=== PATIENT | male | born 2000 | race Caucasian/White ===

== ENCOUNTER 2024-01-09 22:22 | Emergency (ER) | payer OTHER, SELFPAY ==
--- NOTE | ~2024-01-09 | XR_ITS ---
XR chest 1V portable Ordering provider: Sudhir Corbin History: 23 years Male with . SOB . Comparison: None. FINDINGS: MEDIASTINUM: The cardiac silhouette is not enlarged. LUNGS: No infiltrates, effusions or pneumothorax. OTHER: Degenerative changes of the spine. No free air under the diaphragm. IMPRESSION: No acute cardiopulmonary pathology. Reviewed, dictated and finalized at location A.
[2024-01-09 22:31] VITALS: BP 134/82; PULSE 67; RESP 16; TEMP 37.1; O2SAT 99
--- NOTE | 2024-01-09 22:44 | ECG_ITS ---
[facility] [address] Test Date: 2024-01-09 Pat Name: Davion Valente Department: Room: Gender: M [employer]: : 2000 Requested By: Sudhir Lindsay Order Number: [id number] Pia MD: Deng Ferraro M.D. Measurements Intervals [place] Rate: 54 P: 56 DC: 133 QRS: 67 QRSD: 102 T: 46 QT: 389 QTc: 369 Interpretive Statements SINUS BRADYCARDIA WITH SINUS ARRHYTHMIA OTHERWISE NORMAL ECG No previous ECG available for comparison Electronically Signed On 01-10-2024 09:08:34 CDT by Deng Ferraro M.D.
[2024-01-09 23:05] VITALS: BP 112/70; PULSE 63; RESP 16; O2SAT 98
[2024-01-09 23:34] LABS: Influenza A QL RT-PCR Negative (Negative); Influenza B QL RT-PCR Negative (Negative); RSV RNA, RT-PCR Negative (Negative); SARS-CoV-2 RNA PCR Negative (Negative)
--- NOTE | 2024-01-10 00:11 | ED.GENADULT ---
HPI - General Adult General Chief complaint: Shortness of Breath/Dyspnea Stated complaint: sob Time Seen by Provider: 01/09/24 23:54 Source: patient Mode of arrival: ambulatory Limitations: no limitations History of Present Illness HPI narrative: This is a 23-year-old male who presents to the ED for chief complaint of chest tightness and shortness of breath onset this morning. Patient reports he woke up and started to have a cough. States that he went to work and started having increasing chest tightness and cough. States that it caused him to feel short of breath. Does admit to smoking cigarettes and vaping regularly. States the chest pain seems to be onset with deeper breathing but comes and goes at random as well. Denies any recent illness. Denies cardiac history. Denies history of blood clots, leg swelling. Denies fevers, chills, nausea, vomiting or productive cough. Related Data Allergies Allergy/AdvReac Type Severity Reaction Status Date / Time No Known Allergies Allergy Verified 01/09/24 22:33 Review of Systems Review of Systems: All systems as dictated in HPI Exam Narrative: GENERAL: Well-appearing, well-nourished, and in no acute distress. HEAD: Normocephalic, atraumatic. EYES: PERRLA and EOMI. ENT: Nares clear, no rhinorrhea or epistaxis. Mucous membranes moist. Oropharynx without tonsillar hypertrophy exudate or other lesions. NECK: Supple. No adenopathy or masses. CHEST: No respiratory distress. Mild bilateral expiratory wheezes. 98% room air. HEART: Regular rate and rhythm. No murmur heard. Normal peripheral pulses. ABDOMEN: Soft, nontender, nondistended, normal active bowel sounds. MSK: Normal range of motion. No edema. SKIN: Warm, dry, no rash. NEURO: Alert and oriented x3. No focal deficits. PSYCH: Normal mood and affect. Course Vital Signs Vital signs: Vital Signs Temperature 98.7 F 01/09/24 22:31 Pulse Rate 67 01/09/24 22:31 Respiratory Rate 16 01/09/24 22:31 Blood Pressure 134/82 01/09/24 22:31 Pulse Oximetry 99 01/09/24 22:31 Oxygen Delivery Room Air 01/09/24 22:31 Temperature 98.7 F 01/09/24 22:31 Pulse Rate 58 L 01/10/24 01:32 Respiratory Rate 16 01/10/24 01:32 Blood Pressure 104/76 01/10/24 01:32 Pulse Oximetry 99 01/10/24 01:32 Oxygen Delivery Room Air 01/10/24 00:38 Medical Decision Making MDM Narrative Medical decision making narrative: this is a 23-year-old male who presents to the ED for chief complaint of chest tightness, shortness of breath cough onset today. Vitals are normal. Exam shows mild wheezes bilaterally consistent with smoking history. likely has bronchitis as well. Chest x-ray shows no acute findings. ECG shows sinus rhythm with no acute ischemic findings. Heart score for chest pain is 0. Perc rule is negative VTE. he was given Solu-Medrol and breathing treatment here in the ED with moderate relief. Patient will be given Rx Medrol Dosepak and albuterol. Pt will be discharged in stable condition. Return precautions given and supportive measures discussed. Pt is understanding and agreeable with plan for discharge and follow-up with PCP. PERC Rule for Pulmonary Embolism from [email or web address] on 01/09/2024 All calculations should be rechecked by clinician prior to use RESULT SUMMARY: 0 criteria No need for further workup, as <2% chance of PE. If no criteria are positive and clinician?s pre-test probability is <15%, PERC Rule criteria are satisfied. INPUTS: Age >=0 ?> 0 = No HR >=00 ?> 0 = No O? sat on room air <95% ?> 0 = No Unilateral leg swelling ?> 0 = No Hemoptysis ?> 0 = No Recent surgery or trauma ?> 0 = No Prior PE or DVT ?> 0 = No Hormone use ?> 0 = No Vital Signs Vital Signs: Vital Signs Temperature 98.7 F 01/09/24 22:31 Pulse Rate 67 01/09/24 22:31 Respiratory Rate 16 01/09/24 22:31 Blood Pressure 134/82 01/09/24 22:31 Pulse Oximetry 99 01/08
[2024-01-10] MEDS: methylPREDNISolone SOD SUCC 40 MG VIAL IV PUSH (00:21)
[2024-01-10 00:26] VITALS: PULSE 52; RESP 12
[2024-01-10] MEDS: IPRATROPIUM 0.5 MG/ALBUTEROL SULFATE 2.5 MG AMPUL.NEB 3 ML INHALATION (00:26)
[2024-01-10 00:34] VITALS: PULSE 68; RESP 16
[2024-01-10 00:38] VITALS: O2SAT 100
[2024-01-10 00:52] LABS: Alanine Aminotransferase 11 U/L (6-50); Albumin Level 4.7 g/dL (3.5-5.1); Alkaline Phosphatase 60 U/L (38-126); Anion Gap 7 mmol/L (4-12); Aspartate Amino Transferase 22 U/L (17-59); Bilirubin,Total 0.6 mg/dL (0.2-1.3); Blood Urea Nitrogen 18 mg/dL (9-20); Calcium 9.2 mg/dL (8.4-10.2); Carbon Dioxide 24 mmol/L (22-30); Chloride 105 mmol/L (98-107); Estimated CRCL calculation 99 ml/min; Estimated Glomerular Filt Rate > 60; Glucose 92 mg/dL (65-110); Potassium 3.8 mmol/L (3.4-5.0); Sodium 136 mmol/L (137-145)
[2024-01-10 00:57] LABS: Basophils Absolute Auto 0.1 K/mm3 (0.0-0.1); Basophils Percent Auto 0.7 % (0.2-1.2); Eosinophils Absolute Auto 0.1 K/mm3 (0-0.3); Hematocrit 43.3 % (42.0-52.0); Hemoglobin 14.7 g/dL (14.0-18.0); Immature Granulocyte Absolute 0.02 K/mm3 (0.00-0.031); Immature Granulocyte Percent A 0.3 % (0-0.5); Lymphocytes Absolute Auto 2.62 K/mm3 (0.9-3.2); Lymphocytes Percent Auto 37.1 % (18.3-44.2); Mean Corpuscular HGB Conc 33.9 g/dl (32-36); Mean Corpuscular Hemoglobin 30.8 pg (26-34); Mean Corpuscular Volume 90.8 fl (80-100); Mean Platelet Volume 11.4 fl (7.4-10.4); Monocytes Absolute Auto 0.5 K/mm3 (0.1-0.6); Monocytes Percent Auto 7.5 % (2.6-8.5); Neutrophils Absolute Auto 3.7 K/mm3 (1.3-6.7); Neutrophils Percent Auto 52.4 % (45.5-73.1); Platelet Count Result 271 k/mm3 (150-375); Red Blood Count 4.77 M/mm3 (4.6-6.20); Red Cell Distribution Width 11.9 % (11.5-14.5); White Blood Count 7.1 K/mm3 (4.5-10.0)
[2024-01-10 01:17] LABS: Troponin I < 0.012 ng/mL (0.000-0.034)
[2024-01-10 01:32] VITALS: BP 104/76; PULSE 58; RESP 16; O2SAT 99
== END 2024-01-10 01:38 | disposition home or self-care (01) ==
PROVIDERS: Emergency Medicine; Emergency Provider Physician Assistant
DX: J20.9 Acute bronchitis, unspecified (principal); R09.1 Pleurisy; Z20.822 Contact with and (suspected) exposure to COVID-19; R00.1 Bradycardia, unspecified
CPT/HCPCS: 36415; 71045; 80053; 84484; 85025; 87637; 93005; 94640; 96374; 99284; J2919